=== PATIENT | male | born 1960 | race Caucasian/White ===

== ENCOUNTER 2022-11-12 19:26 | Inpatient (IN) ==
[2022-11-12] MEDS ORDERED: NS 0.9% 1000 ml BAG 1,000 ML IV ONE (20:54)
[2022-11-12 20:56] LABS: ABS Basophils 0.1 10^3/uL (0.0-0.1); ABS Eosinophils 0.1 10^3/uL (0.0-0.5); ABS Monocytes 1.3 10^3/uL (0.0-1.1); ABS Neutrophils 6.3 10^3/uL (1.5-7.6); ABS Nucleated RBC 0.01 10^3/ul; Hematocrit 21.9 % (38-53); Hemoglobin 8.1 g/dL (13.2-16.3); Lymphocyte % 11.4 %; Mean Corpuscular Hemoglobin 35.1 pg (27-33); Mean Corpuscular Hgb Conc 37.2 g/dL (31-36); Mean Corpuscular Volume 94.3 fL (80-97); Mean Platelet Volume 6.7 fL (7.5-11.2); Nucleated Red Blood Cells % 0.1 /100 WBC (0.0-0.4); Platelet Count 259 10^3/uL (150-450); Red Blood Count 2.32 10^6/uL (4.06-5.63); Red Cell Distribution Width 12.5 % (12-17); White Blood Count 8.8 10^3/uL (3.6-10.2)
[2022-11-12 21:04] LABS: INR 1.26 (0.83-1.13)
[2022-11-12 21:10] LABS: Albumin 3.4 g/dL (3.2-5.2); Calcium 8.6 mg/dL (8.6-10.3); Magnesium 1.9 mg/dL (1.9-2.7); Total Bilirubin 0.8 mg/dL (0.2-1.0)
[2022-11-12 21:17] LABS: Albumin/Globulin Ratio 1.2 (1-3); Creatinine, Serum 1.53 mg/dL (0.67-1.17); Globulin 2.9 g/dL (2-4); Total Protein 6.3 g/dL (6.4-8.9); eGFR CKD-EPI 50.5 (>60)
[2022-11-12 21:32] LABS: C Reactive Protein 203.57 mg/L (<8.01)
[2022-11-12 22:07] LABS: Urine Appearance Clear; Urine Bilirubin Negative (Negative); Urine Blood 2+ (Negative); Urine Color Yellow; Urine Glucose Negative (Negative); Urine Ketones Negative (Negative); Urine Nitrite Negative (Negative); Urine Protein Negative (Negative); Urine Specific Gravity 1.012 (1.002-1.030); Urine Urobilinogen Negative (Negative)
[2022-11-12 22:15] LABS: Urine Bacteria Absent (Absent); Urine Red Blood Cell Trace(0-2/hpf) (Absent); Urine White Blood Cell Absent (Absent)
[2022-11-12 22:26] LABS: Erythrocyte Sed Rate 75 mm/Hr (0-19)
[2022-11-12 22:28] LABS: High Sensitivity Troponin 1 Hr 10 pg/mL (<20)
[2022-11-12] MEDS ORDERED: ceFAZolin 1 GM ADVAN 1 GM in NS 0.9% 50 ML 50 ML IVPB ONE (22:56)
[2022-11-13] MEDS ORDERED: Acetaminophen IV 1 GM/100ML 1,000 MG/100 ML BAG IV PRN (00:08)
[2022-11-13] MEDS ORDERED: Morphine 2 MG/ML SYRINGE IV PRN (00:09)
[2022-11-13 00:25] LABS: Alcohol, S < 13 mg/dL (<13)
[2022-11-13] MEDS ORDERED: Lactated Ringers 1000 ml BAG 1,000 ML IV SCH ×2 (01:00→03:00)
[2022-11-13 01:32] LABS: TSH Ultra Thyroid Stim Horm 1.67 mcIU/mL (0.34-5.60)
[2022-11-13 01:44] LABS: Vitamin B12 374 pg/mL (180-914)
[2022-11-13 01:47] LABS: Vitamin D Total 25(OH) 12.1 ng/mL (20-50)
[2022-11-13] MEDS: ceFAZolin 2 GM PREMIX 2 GM/50 ML BAG IVPB SCH ×3 (08:38→18:07)
[2022-11-13] MEDS: Multivitamins ADULT w/MIN LIQ 15 ML UDC PO SCH (08:38)
[2022-11-13 09:08] LABS: ABS Eosinophils 0.1 10^3/uL (0.0-0.5); ABS Lymphocytes 1.2 10^3/uL (1.0-4.8); ABS Neutrophils 4.5 10^3/uL (1.5-7.6); ABS Nucleated RBC 0.01 10^3/ul; Eosinophil % 1.8 %; Hematocrit 21.1 % (38-53); Hemoglobin 7.7 g/dL (13.2-16.3); Lymphocyte % 17.3 %; Mean Corpuscular Hemoglobin 35.1 pg (27-33); Mean Corpuscular Hgb Conc 36.6 g/dL (31-36); Nucleated Red Blood Cells % 0.1 /100 WBC (0.0-0.4); Platelet Count 244 10^3/uL (150-450); Red Cell Distribution Width 12.5 % (12-17); White Blood Count 6.9 10^3/uL (3.6-10.2)
[2022-11-13 09:23] LABS: Calcium 8.6 mg/dL (8.6-10.3); Creatinine, Serum 1.11 mg/dL (0.67-1.17); Magnesium 1.9 mg/dL (1.9-2.7); Potassium 3.6 mmol/L (3.5-5.0); eGFR CKD-EPI 74.2 (>60)
[2022-11-13] MEDS ORDERED: Enoxaparin 30 MG/0.3 ML SYR SUBCUT SCH (11:00)
[2022-11-13 14:42] LABS: % Iron Saturation 7 % (15-55); .Transferrin 196 mg/dL (203-362); Iron < 20 ug/dL (50-212); Total Iron Binding Capacity 274 mcg/dL (250-450); Unsaturated Iron Binding 254 ug/dL
[2022-11-13 14:48] LABS: Ferritin 231.5 ng/mL (24-336)
[2022-11-13] MEDS ORDERED: Iron Sucrose 200 MG in NS 0.9% 100 ml BAG 100 ML IVPB ONE (16:32)
[2022-11-13 16:50] LABS: ABS Eosinophils 0.1 10^3/uL (0.0-0.5); ABS Lymphocytes 1.1 10^3/uL (1.0-4.8); ABS Monocytes 1.2 10^3/uL (0.0-1.1); ABS Neutrophils 5.7 10^3/uL (1.5-7.6); Eosinophil % 1.2 %; Hematocrit 20.3 % (38-53); Hemoglobin 7.7 g/dL (13.2-16.3); Mean Corpuscular Hemoglobin 35.5 pg (27-33); Mean Corpuscular Hgb Conc 37.8 g/dL (31-36); Mean Corpuscular Volume 93.9 fL (80-97); Platelet Count 272 10^3/uL (150-450); Red Blood Count 2.17 10^6/uL (4.06-5.63); Red Cell Distribution Width 12.5 % (12-17); White Blood Count 8.1 10^3/uL (3.6-10.2)
[2022-11-13] MEDS: Cholecalciferol (VIT D3) 1,000 unit TAB PO SCH (17:33)
[2022-11-13] MEDS ORDERED: ceFAZolin 2 GM PREMIX 2 GM/50 ML BAG IVPB SCH (18:00)
[2022-11-14] MEDS: ceFAZolin 2 GM PREMIX 2 GM/50 ML BAG IVPB SCH (02:42)
[2022-11-14 06:13] LABS: ABS Basophils 0.1 10^3/uL (0.0-0.1); ABS Eosinophils 0.2 10^3/uL (0.0-0.5); ABS Lymphocytes 1.3 10^3/uL (1.0-4.8); ABS Monocytes 0.8 10^3/uL (0.0-1.1); ABS Neutrophils 4.1 10^3/uL (1.5-7.6); Eosinophil % 2.5 %; Hematocrit 19.9 % (38-53); Hemoglobin 7.3 g/dL (13.2-16.3); Lymphocyte % 20.4 %; Mean Corpuscular Hemoglobin 34.7 pg (27-33); Mean Corpuscular Hgb Conc 36.4 g/dL (31-36); Mean Corpuscular Volume 95.1 fL (80-97); Mean Platelet Volume 7.1 fL (7.5-11.2); Platelet Count 256 10^3/uL (150-450); Red Blood Count 2.09 10^6/uL (4.06-5.63); Red Cell Distribution Width 12.4 % (12-17); White Blood Count 6.5 10^3/uL (3.6-10.2)
[2022-11-14 06:40] LABS: Calcium 8.4 mg/dL (8.6-10.3); Creatinine, Serum 1.1 mg/dL (0.67-1.17); Potassium 3.5 mmol/L (3.5-5.0)
[2022-11-14] MEDS ORDERED: Pneumococcal Vac 23-Polyvalent IM ONE (09:00)
[2022-11-14] MEDS ORDERED: Iron Sucrose 200 MG in NS 0.9% 100 ml BAG 100 ML IVPB ONE ×3 (09:06→16:00)
[2022-11-14] MEDS: Multivitamins ADULT w/MIN LIQ 15 ML UDC PO SCH (11:12)
[2022-11-14] MEDS: Cholecalciferol (VIT D3) 1,000 unit TAB PO SCH (11:12)
[2022-11-14] MEDS: Morphine 2 MG/ML SYRINGE IV PRN (11:38)
[2022-11-14] MEDS ORDERED: Enoxaparin 40 MG/0.4 ML SYR SUBCUT SCH (14:00)
[2022-11-14] MEDS: Magnesium Hydroxide LIQ 30 ML UDC PO SCH (21:03)
[2022-11-15] MEDS: Morphine 2 MG/ML SYRINGE IV PRN (03:49)
[2022-11-15] MEDS ORDERED: Potassium Chlor 20 meq TAB.ER PO ONE (07:44)
[2022-11-15] MEDS: Magnesium Hydroxide LIQ 30 ML UDC PO SCH (08:15)
[2022-11-15] MEDS: Cholecalciferol (VIT D3) 1,000 unit TAB PO SCH (08:16)
[2022-11-15] MEDS: Multivitamins ADULT w/MIN LIQ 15 ML UDC PO SCH (08:16)
[2022-11-15 08:25] LABS: ABS Basophils 0.1 10^3/uL (0.0-0.1); ABS Eosinophils 0.1 10^3/uL (0.0-0.5); ABS Lymphocytes 1.3 10^3/uL (1.0-4.8); ABS Monocytes 0.8 10^3/uL (0.0-1.1); ABS Neutrophils 4.1 10^3/uL (1.5-7.6); Hematocrit 21.8 % (38-53); Lymphocyte % 20.6 %; Mean Corpuscular Hemoglobin 34.7 pg (27-33); Mean Corpuscular Hgb Conc 36.5 g/dL (31-36); Mean Platelet Volume 6.6 fL (7.5-11.2); Nucleated Red Blood Cells % 0.1 /100 WBC (0.0-0.4); Platelet Count 341 10^3/uL (150-450); Red Cell Distribution Width 12.7 % (12-17); White Blood Count 6.4 10^3/uL (3.6-10.2)
[2022-11-15 08:56] LABS: Albumin 3.2 g/dL (3.2-5.2); Albumin/Globulin Ratio 1.1 (1-3); C Reactive Protein 126.45 mg/L (<8.01); Calcium 8.8 mg/dL (8.6-10.3); Creatinine, Serum 0.88 mg/dL (0.67-1.17); Total Bilirubin 0.8 mg/dL (0.2-1.0); Total Protein 6.2 g/dL (6.4-8.9)
[2022-11-15 09:52] VITALS: BP 110/66
== END 2022-11-15 15:55 | disposition home or self-care (01) | DRG 204 ==
LOC: ED 19:26 → EDHOLD 19:26 → SUATTDRO 23:57 → MED 11-13 14:14
PROVIDERS: ADMIT Hospitalist; ATTEND Internal Medicine

== ENCOUNTER 2022-11-25 13:27 | Observation (INO) ==
[2022-11-25] MEDS ORDERED: ceFAZolin 2 GM in NS PREMIX 2 GM/100 ML BAG IVPB ONE (15:03)
[2022-11-25 15:52] LABS: Albumin 3.9 g/dL (3.2-5.2); Calcium 9.3 mg/dL (8.6-10.3); Potassium 3.4 mmol/L (3.5-5.0); Total Bilirubin 0.9 mg/dL (0.2-1.0)
[2022-11-25 15:58] LABS: Albumin/Globulin Ratio 1.1 (1-3); C Reactive Protein 41.27 mg/L (<8.01); Creatinine, Serum 1.2 mg/dL (0.67-1.17); Globulin 3.7 g/dL (2-4); Total Protein 7.6 g/dL (6.4-8.9); eGFR CKD-EPI 67.5 (>60)
[2022-11-25 16:39] LABS: ABS Basophils 0.1 10^3/uL (0.0-0.1); ABS Eosinophils 0.1 10^3/uL (0.0-0.5); ABS Lymphocytes 1.1 10^3/uL (1.0-4.8); ABS Monocytes 0.6 10^3/uL (0.0-1.1); ABS Neutrophils 5.2 10^3/uL (1.5-7.6); ABS Nucleated RBC 0.01 10^3/ul; Eosinophil % 1.7 %; Hematocrit 27.5 % (38-53); Lymphocyte % 15.6 %; Mean Corpuscular Hemoglobin 34.4 pg (27-33); Mean Corpuscular Hgb Conc 36.3 g/dL (31-36); Mean Corpuscular Volume 94.8 fL (80-97); Mean Platelet Volume 6.9 fL (7.5-11.2); Nucleated Red Blood Cells % 0.2 %/100WBC (0.0-0.8); Platelet Count 480 10^3/uL (150-450); Red Cell Distribution Width 12.9 % (12-17); White Blood Count 7.2 10^3/uL (3.6-10.2)
[2022-11-25] MEDS ORDERED: Magnesium Hydroxide LIQ 30 ML UDC PO PRN (18:16)
[2022-11-25] MEDS ORDERED: Potassium Chlor 20 meq TAB.ER PO ONE (18:50)
[2022-11-25] MEDS: ceFAZolin 2 GM in NS PREMIX 2 GM/100 ML BAG IVPB SCH (22:25)
[2022-11-26] MEDS: ceFAZolin 2 GM in NS PREMIX 2 GM/100 ML BAG IVPB SCH ×3 (05:53→21:30)
[2022-11-26 08:53] LABS: Calcium 8.7 mg/dL (8.6-10.3); Creatinine, Serum 1.11 mg/dL (0.67-1.17); Magnesium 1.8 mg/dL (1.9-2.7); Potassium 3.7 mmol/L (3.5-5.0); eGFR CKD-EPI 74.2 (>60)
[2022-11-26 10:32] LABS: ABS Basophils 0.1 10^3/uL (0.0-0.1); ABS Eosinophils 0.2 10^3/uL (0.0-0.5); ABS Lymphocytes 1.7 10^3/uL (1.0-4.8); ABS Monocytes 0.7 10^3/uL (0.0-1.1); ABS Neutrophils 3.6 10^3/uL (1.5-7.6); Eosinophil % 2.9 %; Hematocrit 26.7 % (38-53); Hemoglobin 9.5 g/dL (13.2-16.3); Lymphocyte % 26.5 %; Mean Corpuscular Hemoglobin 34.2 pg (27-33); Mean Corpuscular Hgb Conc 35.6 g/dL (31-36); Mean Corpuscular Volume 96.1 fL (80-97); Mean Platelet Volume 6.4 fL (7.5-11.2); Platelet Count 438 10^3/uL (150-450); Red Blood Count 2.78 10^6/uL (4.06-5.63); Red Cell Distribution Width 13.1 % (12-17); White Blood Count 6.2 10^3/uL (3.6-10.2)
[2022-11-26] MEDS ORDERED: Spironolactone/HCTZ 25-25 mg PO ONE (16:18)
[2022-11-27] MEDS: ceFAZolin 2 GM in NS PREMIX 2 GM/100 ML BAG IVPB SCH ×3 (06:35→22:19)
[2022-11-27 07:00] LABS: ABS Basophils 0.1 10^3/uL (0.0-0.1); ABS Eosinophils 0.2 10^3/uL (0.0-0.5); ABS Lymphocytes 1.5 10^3/uL (1.0-4.8); ABS Monocytes 0.7 10^3/uL (0.0-1.1); ABS Neutrophils 3.1 10^3/uL (1.5-7.6); ABS Nucleated RBC 0.02 10^3/ul; Eosinophil % 3.6 %; Hematocrit 24.2 % (38-53); Hemoglobin 8.8 g/dL (13.2-16.3); Lymphocyte % 26.6 %; Mean Corpuscular Hemoglobin 34.6 pg (27-33); Mean Corpuscular Hgb Conc 36.4 g/dL (31-36); Mean Corpuscular Volume 95.2 fL (80-97); Mean Platelet Volume 6.3 fL (7.5-11.2); Nucleated Red Blood Cells % 0.4 %/100WBC (0.0-0.8); Platelet Count 417 10^3/uL (150-450); Red Blood Count 2.54 10^6/uL (4.06-5.63); Red Cell Distribution Width 12.9 % (12-17); White Blood Count 5.5 10^3/uL (3.6-10.2)
[2022-11-27 07:15] LABS: Calcium 9.1 mg/dL (8.6-10.3); Creatinine, Serum 1.09 mg/dL (0.67-1.17); Potassium 3.9 mmol/L (3.5-5.0); eGFR CKD-EPI 75.8 (>60)
[2022-11-27] MEDS: Acetaminophen IV 1 GM/100ML 1,000 MG/100 ML BAG IV SCH ×2 (12:12→18:26)
[2022-11-28] MEDS: Acetaminophen IV 1 GM/100ML 1,000 MG/100 ML BAG IV SCH ×2 (03:30→10:38)
[2022-11-28] MEDS: ceFAZolin 2 GM in NS PREMIX 2 GM/100 ML BAG IVPB SCH ×2 (06:10→16:54)
[2022-11-28 07:08] LABS: ABS Basophils 0.2 10^3/uL (0.0-0.1); ABS Eosinophils 0.2 10^3/uL (0.0-0.5); ABS Lymphocytes 1.6 10^3/uL (1.0-4.8); ABS Monocytes 0.6 10^3/uL (0.0-1.1); ABS Neutrophils 2.9 10^3/uL (1.5-7.6); Eosinophil % 3.9 %; Hematocrit 22.5 % (38-53); Hemoglobin 8.3 g/dL (13.2-16.3); Lymphocyte % 28.7 %; Mean Corpuscular Hemoglobin 35.1 pg (27-33); Mean Corpuscular Hgb Conc 36.9 g/dL (31-36); Mean Corpuscular Volume 95.2 fL (80-97); Mean Platelet Volume 6.6 fL (7.5-11.2); Platelet Count 395 10^3/uL (150-450); Red Blood Count 2.36 10^6/uL (4.06-5.63); Red Cell Distribution Width 12.9 % (12-17); White Blood Count 5.4 10^3/uL (3.6-10.2)
[2022-11-28 14:00] VITALS: BP 148/78
== END 2022-11-28 16:07 | disposition home or self-care (01) ==
LOC: EDHOLD 13:27 → ED 13:27 → SUATTDRO 17:15 → EDHOLD 20:39 → SSU 21:32
PROVIDERS: ADMIT Hospitalist; ATTEND Internal Medicine

== ENCOUNTER 2023-07-07 13:25 | Inpatient (IN) ==
[2023-07-07 15:41] LABS: ABS Basophils 0.1 10^3/uL (0.0-0.1); ABS Eosinophils 0.1 10^3/uL (0.0-0.5); ABS Monocytes 0.8 10^3/uL (0.0-1.1); ABS Neutrophils 4.6 10^3/uL (1.5-7.6); ABS Nucleated RBC 0.01 10^3/ul; Eosinophil % 2.2 %; Hematocrit 35.8 % (38-53); Hemoglobin 12.6 g/dL (13.2-16.3); Lymphocyte % 14.7 %; Mean Corpuscular Hemoglobin 33.1 pg (27-33); Mean Corpuscular Hgb Conc 35.1 g/dL (31-36); Mean Corpuscular Volume 94.4 fL (80-97); Mean Platelet Volume 6.3 fL (7.5-11.2); Nucleated Red Blood Cells % 0.1 %/100WBC (0.0-0.8); Platelet Count 271 10^3/uL (150-450); Red Cell Distribution Width 13.1 % (12-17); White Blood Count 6.6 10^3/uL (3.6-10.2)
[2023-07-07 16:20] LABS: Albumin 3.8 g/dL (3.2-5.2); Calcium 9.2 mg/dL (8.6-10.3); Creatinine, Serum 1.02 mg/dL (0.67-1.17); Potassium 4.2 mmol/L (3.5-5.0); Total Bilirubin 0.7 mg/dL (0.2-1.0); Total Protein 7.8 g/dL (6.4-8.9); eGFR CKD-EPI 82.1 (>60)
[2023-07-07] MEDS: Iohexol 350 (CONTRAST) 500 ML MDV IV ONE (18:05)
[2023-07-07] MEDS: NS 0.9% 1000 ml BAG 1,000 ML IV SCH (20:21)
[2023-07-07] MEDS: Sulfamethox/Trimethoprim DS TAB 800/160 mg PO SCH (20:28)
[2023-07-07 22:05] LABS: HDL Cholesterol 62.9 mg/dL
[2023-07-08] MEDS ORDERED: Senna TAB 8.6 mg TAB PO PRN (17:22)
[2023-07-08] MEDS ORDERED: Polyethylene Glycol 3350 17 GM PACKET PO PRN (17:22)
[2023-07-08] MEDS: Enoxaparin 40 MG/0.4 ML SYR SUBCUT ONE (17:30)
[2023-07-09] MEDS ORDERED: Sulfur Hexaflouride MICROSPHR 25 MG VIAL ONE (09:21)
[2023-07-09] MEDS: NS 0.9% 500 ml BAG 500 ML IV ONE (10:41)
[2023-07-10 05:29] LABS: Hematocrit 34.1 % (38-53); Hemoglobin 11.9 g/dL (13.2-16.3); Mean Corpuscular Hemoglobin 32.8 pg (27-33); Mean Corpuscular Hgb Conc 34.9 g/dL (31-36); Mean Platelet Volume 6.8 fL (7.5-11.2); Platelet Count 268 10^3/uL (150-450); Red Blood Count 3.63 10^6/uL (4.06-5.63); Red Cell Distribution Width 13.4 % (12-17); White Blood Count 4.9 10^3/uL (3.6-10.2)
[2023-07-10 06:18] LABS: Anion Gap 9 mmol/L (2-16); Blood Urea Nitrogen 18 mg/dL (6-24); CO2 Carbon Dioxide 24 mmol/L (22-32); Calcium 8.6 mg/dL (8.6-10.3); Chloride 100 mmol/L (101-111); Creatinine, Serum 1.04 mg/dL (0.67-1.17); Glucose 111 mg/dL (70-100); Sodium 133 mmol/L (135-145); eGFR CKD-EPI 80.2 (>60)
[2023-07-10 07:11] LABS: ABS Basophils 0.1 10^3/uL (0.0-0.1); ABS Eosinophils 0.3 10^3/uL (0.0-0.5); ABS Lymphocytes 1.5 10^3/uL (1.0-4.8); ABS Neutrophils 2.1 10^3/uL (1.5-7.6); Eosinophil % 5.5 %; Nucleated Red Blood Cells % 0.1 %/100WBC (0.0-0.8)
[2023-07-10 07:24] LABS: RBC Morphology Normal (Normal)
[2023-07-10] MEDS: Multivitamins/Minerals TAB PO SCH (11:57)
[2023-07-13 05:54] LABS: ABS Eosinophils 0.4 10^3/uL (0.0-0.5); ABS Monocytes 0.8 10^3/uL (0.0-1.1); ABS Neutrophils 3.4 10^3/uL (1.5-7.6); ABS Nucleated RBC 0.01 10^3/ul; Eosinophil % 6.1 %; Hemoglobin 12.1 g/dL (13.2-16.3); Mean Corpuscular Hemoglobin 32.4 pg (27-33); Mean Corpuscular Hgb Conc 34.6 g/dL (31-36); Mean Corpuscular Volume 93.6 fL (80-97); Mean Platelet Volume 6.7 fL (7.5-11.2); Nucleated Red Blood Cells % 0.1 %/100WBC (0.0-0.8); Platelet Count 309 10^3/uL (150-450); Red Blood Count 3.74 10^6/uL (4.06-5.63); Red Cell Distribution Width 13.3 % (12-17); White Blood Count 6.7 10^3/uL (3.6-10.2)
[2023-07-13 06:12] LABS: Creatinine, Serum 0.79 mg/dL (0.67-1.17); Potassium 4.2 mmol/L (3.5-5.0); eGFR CKD-EPI 99.2 (>60)
[2023-07-14 10:07] VITALS: BP 125/55
== END 2023-07-14 13:10 | DRG 45 ==
LOC: EDHOLD 13:25 → ED 13:25 → MEDTELE 21:19 → SUATTDRO 07-08 14:52
PROVIDERS: ADMIT Student in an Organized Health Care Education/Training Program; ATTEND Hospitalist